=== PATIENT | male | born 1975 | race Caucasian/White ===

== ENCOUNTER 2018-07-15 19:37 | Emergency (ER) | payer OTHER ==
[2018-07-15 19:55] VITALS: BP 131/85
[2018-07-15] MEDS ORDERED: Ibuprofen TAB* 600 MG PO ONE (19:59)
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
--- NOTE | 2018-07-15 22:50 | RAD ---
INDICATION: Left shoulder pain after a fall COMPARISON: None. TECHNIQUE: 4 views of the left shoulder were obtained. FINDINGS: The adequately corticated bones are in normal alignment. Joint spaces appear maintained. No fracture, dislocation or focal bony abnormality is seen. IMPRESSION: Normal radiograph of the left shoulder. If the patient's symptoms persist, follow-up imaging is recommended. R0
--- NOTE | 2018-07-15 22:51 | RAD ---
INDICATION: Left hip pain after a fall COMPARISON: None TECHNIQUE: 4 views of the left hip were obtained. FINDINGS: The visualized bones of the left hip are well-corticated and properly aligned. The joint spaces are normal. There is no radiographic evidence of acute fracture or dislocation. IMPRESSION: Normal radiograph of the left hip. If the patient's symptoms persist follow-up imaging is recommended. R0
--- NOTE | 2018-07-16 09:11 | UC ---
Discharge - Sign-Out/Discharge Documenting (check all that apply): Post-Discharge Follow Up All imaging exams completed and their final reports reviewed: Yes - Discharge Plan Condition: Stable Disposition: HOME Patient Education Materials: Fall Prevention (ED), Shoulder Pain (ED), Hip Pain (ED) Referrals: José Luis Falk MD [Medical Doctor] - Reema Daniel MD [Primary Care Provider] - Additional Instructions: Ice, elevation, rest, ibuprofen for pain and swelling. If symptoms do not improve within 5 days follow-up with orthopedics Dr. Encarnacion. - Billing Disposition and Condition Condition: STABLE Disposition: Home
== END 2018-07-15 21:28 | disposition home or self-care (01) ==
LOC: UCEAST 19:37
DX: M25.512 Pain in left shoulder (principal); M25.552 Pain in left hip; S50.312A Abrasion of left elbow, initial encounter; S70.212A Abrasion, left hip, initial encounter; V19.9XXA Pedal cyclist (driver) (passenger) injured in unspecified traffic accident, initial encounter; Y93.55 Activity, bike riding; Y92.9 Unspecified place or not applicable; Z87.891 Personal history of nicotine dependence
CPT/HCPCS: 99212; A9270-GY; G0463